=== PATIENT | male | born 1950 | race Caucasian/White ===

== ENCOUNTER 2016-10-05 14:54 | Emergency (ER) | payer MEDICARE, OTHER ==
[~2016-10-05] VITALS: Ht 172.7 cm; Wt 80.0 kg
[~2016-10-05 14:54] MED LIST: DIOV160T60; FELO2.5T; HYDR12.56; SIMV5TAB32; TOPR100T15
[2016-10-05 14:58] VITALS: PULSE 72; RESP 16; TEMP 97.5; O2SAT 99
--- NOTE | 2016-10-05 15:55 | PD ---
HPI Chief Complaint: GI Complaint Time Seen by Provider: 15:12 Travel History International Travel<30 days: No Contact w/Intl Traveler<30days: No Traveled to known affect area: No History of Present Illness HPI Is a 66-year-old man who presents to the emergency department complaining of severe lower abdominal pain started about 9 AM. He states he drank a lot of alcohol last night smell pain you poppers. His a history of BPH and often is a little bit of trouble with mild retention after drinking a lot of alcohol. His never had to see the doctor before. His never had a catheter before. He states since this morning he's had progressive worsening symptoms and now with nausea and vomiting. His stools of been slightly loose. He's had chills and sweats intermittently since the pains got worse. History Past Medical History Narrative Medical Hypertension A. fib Borderline diabetes BPH Social History Alcohol Use: Yes (states 4 60 oz beers and 5 glasses of wine last night) Tobacco Use: No Allergies-Medications (Allergen,Severity, Reaction): Coded Allergies: No Known Allergies (Verified , 10/05/16) Reported Meds & Prescriptions Reported Meds & Active Scripts Active Reported Zocor (Simvastatin) 5 Mg Tab Toprol Xl (Metoprolol Succinate) 100 Mg Tab Plendil (Felodipine) 2.5 Mg Tab Diovan (Valsartan) 160 Mg Tab Hctz (Hydrochlorothiazide) 12.5 Mg Cap Review of Systems Except as stated in HPI: all other systems reviewed are Neg Physical Exam Narrative GENERAL: 66-year-old man, appears uncomfortable, intermittent retching. SKIN: Focused skin assessment warm/dry. HEAD: Atraumatic. Normocephalic. CARDIOVASCULAR: Regular rate and rhythm. No murmur appreciated. RESPIRATORY: No accessory muscle use. Clear to auscultation. Breath sounds equal bilaterally. GASTROINTESTINAL: Abdomen soft but distended and a little bit taut in the lower abdomen. Bladder appears to be palpable in the lower abdomen with significant tenderness. MUSCULOSKELETAL: No obvious deformities. No edema. NEUROLOGICAL: Awake and alert. No obvious cranial nerve deficits. Motor grossly within normal limits. Normal speech. PSYCHIATRIC: Appropriate mood and affect; insight and judgment normal. Data Data Last Documented VS Vital Signs Date Time Temp Pulse Resp B/P Pulse Ox O2 Delivery O2 Flow Rate FiO2 10/05/16 14:58 97.5 72 16 99 Orders Complete Blood Count With Diff (10/05/16 15:19) Comprehensive Metabolic Panel (10/05/16 15:19) Ua Includes Microscopic (10/05/16 15:19) Urinary Catheter Insert/Apply (10/05/16 15:19) MDM Medical Decision Making Medical Screen Exam Complete: Yes Emergency Medical Condition: Yes Differential Diagnosis Acute urinary retention, diverticulitis, rupture, infection, other Narrative Course Medical decision making 66-year-old male presents to the emergency department complaining of lower abdominal pain. Significant tenderness with distention suggestive of acute urinary retention. Morales catheter was placed and 7000 mL some urine came out. We'll check labs. Patient was signed out to the oncoming provider follow-up on results of labs, likely discharge. Shankar Victor MD Oct 05, 2016 15:55
[2016-10-05 15:57] LABS: AUTOMATED NEUTROPHIL # 9.1 TH/MM3 (1.8-7.7); BASOPHIL % 0.5 % (0.0-2.0); EOSINOPHIL # 0.1 TH/MM3 (0-0.4); EOSINOPHIL % 0.7 % (0.0-4.0); HEMATOCRIT 45.3 % (39.0-51.0); LYMPH % 4.7 % (9.0-44.0); LYMPHOCYTE # 0.5 TH/MM3 (1.0-4.8); MEAN CELL VOLUME 87.4 FL (80.0-100.0); MEAN CORPUSCULAR HEMOGLOBIN 28.9 PG (27.0-34.0); MONO % 2.2 % (0.0-8.0); NEUT % 91.9 % (16.0-70.0); PLATELET COUNT 118 TH/MM3 (150-450); RED BLOOD COUNT 5.18 MIL/MM3 (4.50-5.90); RED CELL DISTRIBUTION WIDTH 13.5 % (11.6-17.2); WHITE BLOOD COUNT 9.9 TH/MM3 (4.0-11.0)
[2016-10-05 15:59] LABS: BLOOD, URINE LARGE (NEG); GLUCOSE,URINE NEG (NEG); KETONE, URINE 40 mg/dL (NEG)
[2016-10-05 16:00] LABS: HEMO FLAGS DIFF FINAL
[2016-10-05 16:01] LABS: NITRITE,URINE POS (NEG)
[2016-10-05 16:05] LABS: CHLORIDE 98 MEQ/L (98-107); POTASSIUM 3.6 MEQ/L (3.5-5.1); SODIUM (NA) 135 MEQ/L (136-145)
[2016-10-05 16:10] LABS: ANION GAP 15 MEQ/L (5-15); BICARBONATE 21.6 MEQ/L (21.0-32.0); BLOOD UREA NITROGEN 12 MG/DL (7-18)
[2016-10-05 16:13] LABS: ALT (GPT) 25 U/L (12-78); AST (GOT) 20 U/L (15-37); GLOMERULAR FILTRATION RATE 75 ML/MIN (>89)
[2016-10-05 16:15] LABS: TOTAL BILIRUBIN ADULT 1.4 MG/DL (0.2-1.0)
[2016-10-05 16:16] LABS: ALKALINE PHOSPHATASE 26 U/L (45-117)
[2016-10-05 16:21] LABS: METHOD OF COLLECTION CLEAN CATCH; URINE COLOR AMBER (YELLW/STRAW)
[2016-10-05 16:22] LABS: RBC, URINE 100-200 /hpf (0-3)
[2016-10-05 16:23] LABS: SQUAMOUS EPITHELIAL CELL URINE 0-5 /hpf (0-5)
--- NOTE | 2016-10-05 16:31 | PD ---
Physical Exam Date Seen by Provider: Oct 05, 2016 Time Seen by Provider: 16:29 Narrative This 66-year-old male had presented with urinary retention. He has had intermittent troubles with urinating before but he has never required a catheter. He is on tamsulosin. Catheter was inserted and has drained over 1500 cc of urine. Patient will be released with an indwelling Morales. His hemoglobin is 14 with a white count of 9000. Creatinine is 1. There are just 3 -5 white cells in the urine he is stable for discharge. There is a urologist that he is planning to see. Data Data Last Documented VS Vital Signs Date Time Temp Pulse Resp B/P Pulse Ox O2 Delivery O2 Flow Rate FiO2 10/05/16 14:58 97.5 72 16 99 Orders Complete Blood Count With Diff (10/05/16 15:19) Comprehensive Metabolic Panel (10/05/16 15:19) Ua Includes Microscopic (10/05/16 15:19) Urinary Catheter Insert/Apply (10/05/16 15:19) Bag, Leg 32oz Sterile Large Ea (10/05/16 16:28) Labs Laboratory Tests Test 10/05/16 15:40 White Blood Count 9.9 TH/MM3 Red Blood Count 5.18 MIL/MM3 Hemoglobin 14.9 GM/DL Hematocrit 45.3 % Mean Corpuscular Volume 87.4 FL Mean Corpuscular Hemoglobin 28.9 PG Mean Corpuscular Hemoglobin 33.0 % Concent Red Cell Distribution Width 13.5 % Platelet Count 118 TH/MM3 Mean Platelet Volume 10.1 FL Neutrophils (%) (Auto) 91.9 % Lymphocytes (%) (Auto) 4.7 % Monocytes (%) (Auto) 2.2 % Eosinophils (%) (Auto) 0.7 % Basophils (%) (Auto) 0.5 % Neutrophils # (Auto) 9.1 TH/MM3 Lymphocytes # (Auto) 0.5 TH/MM3 Monocytes # (Auto) 0.2 TH/MM3 Eosinophils # (Auto) 0.1 TH/MM3 Basophils # (Auto) 0.0 TH/MM3 CBC Comment DIFF FINAL Differential Comment Urine Collection Type CLEAN CATCH Urine Color MOHINDER Urine Turbidity MOD Urine pH 7.0 Urine Specific Otto 1.010 Urine Protein 30 mg/dL Urine Glucose (UA) NEG mg/dL Urine Ketones 40 mg/dL Urine Occult Blood LARGE Urine Nitrite POS Urine Bilirubin NEG Urine Leukocyte Esterase TRACE Urine RBC 100-200 /hpf Urine WBC 3-5 /hpf Urine Squamous Epithelial 0-5 /hpf Cells Urine Amorphous Sediment FEW Microscopic Urinalysis Comment Urine Collection Time 1540 Sodium Level 135 MEQ/L Potassium Level 3.6 MEQ/L Chloride Level 98 MEQ/L Carbon Dioxide Level 21.6 MEQ/L Anion Gap 15 MEQ/L Blood Urea Nitrogen 12 MG/DL Creatinine 1.00 MG/DL Estimat Glomerular Filtration 75 ML/MIN Rate Random Glucose 157 MG/DL Calcium Level 9.9 MG/DL Total Bilirubin 1.4 MG/DL Aspartate Amino Transf 20 U/L (AST/SGOT) Alanine Aminotransferase 25 U/L (ALT/SGPT) Alkaline Phosphatase 26 U/L Total Protein 7.6 GM/DL Albumin 4.3 GM/DL [facility] Medical Record Reviewed: No Supervised Visit with OTILIA: No Differential Diagnosis Differential includes prostatic enlargement, urinary retention Narrative Course Lab work is unremarkable. Patient will be released with an indwelling Morales follow-up with a urologist Diagnosis Primary Impression: Urinary retention Disposition: 01 DISCHARGE HOME Condition: Stable Alex Jennings MD Oct 05, 2016 16:31
== END 2016-10-05 17:03 | disposition home or self-care (01) ==
LOC: PHED 14:54
DX: R33.9 Retention of urine, unspecified (principal); N40.0 Benign prostatic hyperplasia without lower urinary tract symptoms; I10 Essential (primary) hypertension; I48.91 Unspecified atrial fibrillation; R73.03 Prediabetes
CPT/HCPCS: 51702; 80053; 81001; 85025; 99283